=== PATIENT | female | born 1995 | race Caucasian/White ===

== ENCOUNTER 2018-08-31 15:00 | Emergency (ER) | payer BC, SELFPAY ==
[2018-08-31 15:01] VITALS: BP 101/70; PULSE 102; RESP 16; TEMP 36.3; O2SAT 99; BMI 20.9
--- NOTE | 2018-08-31 15:14 | ED.VISSUMM ---
- ER Visit Summary Date of Service: 08/31/18 Chief Complaint: Nausea and vomiting History of Present Illness: The patient is a 22 F who is otherwise healthy presents with nausea and vomiting. Patient symptoms began at about 7 this morning. She states every 30-45 minutes, she has been having episodes of emesis. She cannot keep anything down. She had some mild abdominal cramping with it, but no pain when she is not vomiting. She had no diarrhea. She has no history of inflammatory bowel disease. She is unsure if she had recent sick contacts. She is no history of prior abdominal surgery. She denies any other systemic complaints. She states she did go to urgent care and was referred here for further evaluation. Physical Examination: Vital signs reviewed General: Well-nourished, well-developed Head: Normocephalic, atraumatic Eyes: Pupils equal and reactive, extraocular muscles intact Neck, supple, no lymphadenopathy Heart: Regular rate and rhythm Respiratory: No distress, clear bilaterally Abdomen: Soft, nontender, nondistended, no peritoneal signs Back: Nontender Extremities: Nontender, no edema, no cords Skin: Normal color no rash Neuro: Alert and oriented, no focal or lateralizing deficits Test Results: [] Emergency Department Course and Treatment: The patient presents with nausea and vomiting. Her abdomen is nontender. IV was established. She was given fluids, antiemetics, and anti-inflammatories. She still had some persistent nausea but it was mildly improved. She was then given another dose of antiemetics with marked improvement. Her labs are unremarkable. On reevaluation, she is resting comfortably. At this time, I do feel that this is likely viral in nature. I do feel the patient is safe for outpatient care. She was counseled concerning symptoms and reasons to return. She will be discharged home. Treatment Plan: [] Disposition: Discharge Impression: 1. Viral gastroenteritis This note was generated with [employer] dictation software. It may contain incorrect words, spelling, and punctuation that were not noted in review of the chart prior to signing ED Disposition - Plan for ED Patient: Disposition: Home or Assisted Living Chief Complaint: Nausea/Vomiting/Diarrhea Instructions: ED Gastroenteritis Viral Prescriptions: Ondansetron [Zofran Odt] 4 mg PO Q8H PRN PRN #10 tab PRN Reason: Nausea Dicyclomine HCl [Bentyl] 20 mg PO TIDAC #20 cap Referrals: Care Physician,No Primary [Primary Care Provider] -
[2018-08-31] MEDS: 0.9% Normal Saline 1,000 ML 1000 ML IV (15:20)
[2018-08-31] MEDS: Ondansetron 4 MG/2 ML Vial IV (15:21)
[2018-08-31] MEDS: Ketorolac 15 MG/ML Vial IV (15:21)
[2018-08-31 15:40] LABS: Absolute Lymphocyte Count 0.21 X10^3/ul (0.83-4.51); Absolute Neutrophil Count 7.3 X10^3/uL (2.0-7.7); Basophil# 0.01 X10^3/uL; Basophil% 0.1 % (0-1); Differential Indicated SCAN CRITERIA MET; Eosinophil# 0.01 X10^3/uL; Eosinophils% 0.1 % (0-5); Hemoglobin 14.2 g/dl (12.0-15.0); Lymphocyte # 0.21 X10^3/ul (4.0); Lymphocyte % 2.7 % (19-41); Mean Corpuscular Hgb 31.1 pg (27.0-32.0); Mean Corpuscular Volume 94.3 fL (81-99); Monocyte# 0.25 X10^3/uL; Monocyte% 3.2 % (0-10); Neutrophil # 7.32 X10^3/uL (2.7-7.7); Neutrophil % 93.6 % (47-70); POSITIVE COUNT NO; POSITIVE DIFFERENTIAL YES; POSITIVE MORPHOLOGY NO; Platelet Count 186 K/mm3 (150-450); RBC Distribution Width SD 40.6 fl (35.1-43.9); Red Blood Count 4.56 M/mm3 (4.2-5.4); White Blood Count 7.8 K/mm3 (4.4-11.0)
[2018-08-31 15:51] LABS: Differential Comment SCANNED
[2018-08-31 16:04] LABS: ALB/GLOB Ratio 1.4 RATIO (0.9-2.4); AST(SGOT) 19 U/L (15-37); Alanine Aminotransfer ALT/SGPT 20 U/L (13-56); Albumin, Serum 4.8 g/dL (3.2-5.0); Alkaline Phosphatase 71 U/L (45-117); Anion Gap 8 (5-15); BUN 20 mg/dL (7-18); BUN/Creat Ratio 25.2 RATIO (10-20); Calcium,Total 9.4 mg/dL (8.5-10.1); Chloride 107 mmol/L (98-107); Creatinine, Serum 0.79 mg/dL (0.55-1.02); EST Glomerular Filtration Rate 96 mL/min (>60); Est Glom Filt Rate - Afr Amer 117 mL/min (>60); Estimated Creatinine Clearance 97.27 ml/min; Globulin 3.5 g/dL (2.2-4.2); Glucose 107 mg/dL (74-106); Potassium 3.9 mmol/L (3.5-5.1); Protein, Total 8.3 g/dL (6.4-8.2); Sodium Level 143 mmol/L (136-145)
[2018-08-31 16:19] LABS: Pregnancy, Serum, hCG Quali. NEGATIVE Negative (0-9 Nonpreg)
[2018-08-31] MEDS: proMETHazine 25 MG/ML Syringe 6.25 MG IV (16:23)
[2018-08-31 16:45] VITALS: BP 100/64; PULSE 86; RESP 18
== END 2018-08-31 16:46 | disposition home or self-care (01) ==
PROVIDERS: Emergency Provider Emergency Medicine
DX: A08.4 Viral intestinal infection, unspecified (principal)
CPT/HCPCS: 80053; 84703; 85025; 96361; 96374; 96375; 99284; J7030; A4216; J2405